=== PATIENT | female | born 1980 | race Caucasian/White ===

== ENCOUNTER 2018-08-19 11:58 | Emergency (ER) | payer OTHER ==
[~2018-08-19] VITALS: Ht 152.4 cm; Wt 55.8 kg
[2018-08-19 12:15] VITALS: Ht 152.4 cm; Wt 55.8 kg
[2018-08-19 14:16] VITALS: BP 115/69
== END 2018-08-19 14:16 | disposition home or self-care (01) ==
LOC: ED 11:58
DX: O23.41 Unspecified infection of urinary tract in pregnancy, first trimester (principal); O99.281 Endocrine, nutritional and metabolic diseases complicating pregnancy, first trimester; E05.90 Thyrotoxicosis, unspecified without thyrotoxic crisis or storm; Z3A.10 10 weeks gestation of pregnancy
CPT/HCPCS: J0696